=== PATIENT | female | born 1980 | race African-American/Black ===

== ENCOUNTER 2022-10-27 12:57 | Emergency (ER) | payer OTHER ==
[2022-10-27 13:08] VITALS: BMI 33.9
[2022-10-27] MEDS ORDERED: ACETAMINOPHEN 1000 MG/100 ML BAG IVPB ONE (14:29)
[2022-10-27] MEDS ORDERED: FAMOTIDINE 20 MG TABLET PO ONE (14:35)
[2022-10-27] MEDS ORDERED: MAG HYDROX/AL HYDROX/SIMETH -MYLANTA- ORAL SUSPENSION PO ONE (14:35)
[2022-10-27] MEDS ORDERED: SODIUM CHLORIDE 1,000 ML IV STA (14:36)
[2022-10-27] MEDS ORDERED: ONDANSETRON 4 MG/2 ML VIAL IVPUSH ONE (14:36)
[2022-10-27 15:10] LABS: BASO % 0.2 % (0-2.0); EOS % 0.1 % (0-4.5); HEMATOCRIT 39.4 % (32.4-45.2); HEMOGLOBIN 13.2 GM/dL (10.7-15.3); LYMPH % 14.2 % (8-40); MCH 27.3 pg (25.7-33.7); MCHC 33.4 g/dl (32.0-36.0); MEAN CELL VOLUME 81.6 fl (80-96); MEAN PLT VOLUME 9.8 fl (7.5-11.1); MONO % 3.2 % (3.8-10.2); NEUT % 82.3 % (42.8-82.8); PLATELET COUNT 235 10^3/uL (134-434); RBC 4.83 M/mm3 (3.60-5.2); RDW 14.3 % (11.6-15.6); WHITE BLOOD COUNT 7.1 K/mm3 (4.0-10.0)
[2022-10-27 15:29] LABS: CHLORIDE 103 mmol/L (98-107); POTASSIUM 3.8 mmol/L (3.5-5.1); SODIUM 137 mmol/L (136-145)
[2022-10-27 15:31] LABS: ALBUMIN 4.4 g/dl (3.4-5.0); ANION GAP 5 MMOL/L (8-16); CO2 29 mmol/L (21-32); GLUCOSE,RANDOM 99 mg/dL (74-106); LIPASE 135 U/L (73-393)
[2022-10-27 15:32] LABS: BLOOD UREA NITROGEN 5.6 mg/dL (7-18)
[2022-10-27 15:33] LABS: CREATININE 0.8 mg/dL (0.55-1.3); SGPT/ALT 24 U/L (13-61)
[2022-10-27 15:35] LABS: SGOT/AST 29 U/L (15-37)
[2022-10-27 15:36] LABS: BILIRUBIN,TOTAL 0.4 mg/dL (0.2-1); TOT PROT 8.7 g/dl (6.4-8.2)
[2022-10-27 15:37] LABS: ALK PHOS 70 U/L (45-117)
[2022-10-27] MEDS ORDERED: FAMOTIDINE 20 MG/50 ML IVPB 20 MG/50 ML MG IVPB ONE (16:06)
[2022-10-27] MEDS ORDERED: ONDANSETRON 4 MG/2 ML VIAL ONE (16:06)
[2022-10-27] MEDS ORDERED: MAG HYDROX/AL HYDROX/SIMETH 30 ML UNIT-DOSE CUP ONE (16:06)
[2022-10-27 16:48] LABS: PH,URINE 7.5 (5.0-8.0); URINE APPEARANCE CLEAR; URINE BILIRUBIN NEGATIVE (NEGATIVE); URINE COLOR YELLOW; URINE GLUCOSE (UA) NEGATIVE (NEGATIVE); URINE KETONE NEGATIVE (NEGATIVE); URINE LEUK ESTERASE NEGATIVE (NEGATIVE); URINE NITRITE NEGATIVE (NEGATIVE); URINE PROTEIN NEGATIVE (NEGATIVE); URINE UROBILINOGEN 0.2 mg/dL (0.2-1.0)
[2022-10-27 17:30] VITALS: BP 164/89; PULSE 97; RESP 16; TEMP 97.8
== END 2022-10-27 17:48 | disposition home or self-care (01) ==
LOC: JER 12:57
PROC: 3E033NZ Introduction of Analgesics, Hypnotics, Sedatives into Peripheral Vein, Percutaneous Approach (ICD-10-PCS; principal; 2022-10-27)
PROC: 3E0337Z Introduction of Electrolytic and Water Balance Substance into Peripheral Vein, Percutaneous Approach (ICD-10-PCS; 2022-10-27)
DX: R10.13 Epigastric pain (principal); R42 Dizziness and giddiness; R11.10 Vomiting, unspecified; R19.7 Diarrhea, unspecified; K52.9 Noninfective gastroenteritis and colitis, unspecified
CPT/HCPCS: 36415; 80053; 81003; 83690; 84702; 85025; 93005; 93010; 99284-25

== ENCOUNTER 2023-12-20 11:17 | Emergency (ER) | payer OTHER ==
[2023-12-20 11:24] VITALS: BP 155/92; PULSE 104; RESP 18; TEMP 99.4; BMI 34.9
[2023-12-20 12:32] LABS: EPI CELLS 6 /uL (0-25.1); HYALINE CASTS 0 /uL (0-3.1); PH,URINE >= 9.0 (5.0-8.0); URINE APPEARANCE CLEAR; URINE BACTERIA 210 /uL (0-1359); URINE BILIRUBIN NEGATIVE (NEGATIVE); URINE COLOR YELLOW; URINE GLUCOSE (UA) NEGATIVE (NEGATIVE); URINE KETONE NEGATIVE (NEGATIVE); URINE LEUK ESTERASE TRACE (NEGATIVE); URINE NITRITE NEGATIVE (NEGATIVE); URINE PROTEIN NEGATIVE (NEGATIVE); URINE RBC 8 /uL (0-23.9); URINE UROBILINOGEN 0.2 mg/dL (0.2-1.0); URINE WBC 9 /uL (0-25.8)
[2023-12-20] MEDS ORDERED: FAMOTIDINE 20 MG/50 ML IVPB 20 MG/50 ML MG IVPB ONE (12:35)
[2023-12-20] MEDS ORDERED: ONDANSETRON 4 MG/2 ML VIAL ONE (12:35)
[2023-12-20] MEDS: SODIUM CHLORIDE 0.9% 500 ML INFUS.BAG IV ONE (12:40)
[2023-12-20] MEDS: ONDANSETRON 4 MG/2 ML VIAL IVPUSH ONE (12:40)
[2023-12-20] MEDS: FAMOTIDINE 20 MG/50 ML IVPB 20 MG/50 ML MG IVPB ONE (12:40)
[2023-12-20 12:42] LABS: BASO % 0.3 % (0-2.0); EOS % 0.1 % (0-4.5); HEMOGLOBIN 12.1 GM/dL (10.7-15.3); LYMPH % 13.5 % (8-40); MCH 26.6 pg (25.7-33.7); MCHC 32.7 g/dl (32.0-36.0); MEAN CELL VOLUME 81.5 fl (80-96); MEAN PLT VOLUME 8.8 fl (7.5-11.1); MONO % 3.8 % (3.8-10.2); NEUT % 82.3 % (42.8-82.8); PLATELET COUNT 231 10^3/uL (134-434); RBC 4.54 M/mm3 (3.60-5.2); RDW 15.1 % (11.6-15.6); WHITE BLOOD COUNT 6.1 K/mm3 (4.0-10.0)
[2023-12-20 13:00] LABS: POTASSIUM 4.1 mmol/L (3.5-5.1)
[2023-12-20 13:03] LABS: ALBUMIN 4.1 g/dl (3.4-5.0); BLOOD UREA NITROGEN 9.4 mg/dL (7-18); MAGNESIUM 2.1 mg/dL (1.8-2.4)
[2023-12-20 13:06] LABS: CREATININE 0.9 mg/dL (0.55-1.3)
[2023-12-20 13:08] LABS: BILIRUBIN,TOTAL 0.4 mg/dL (0.2-1); TOT PROT 7.9 g/dl (6.4-8.2)
[2023-12-20 13:10] LABS: HCG,QUALITATIVE URINE Negative
[2023-12-20] MEDS ORDERED: ACETAMINOPHEN INJECTION 100 ML IVPB ONE (13:30)
[2023-12-20] MEDS ORDERED: MAG HYDROX/AL HYDROX/SIMETH 30 ML UNIT-DOSE CUP ONE (13:30)
[2023-12-20] MEDS ORDERED: LIDOCAINE VISCOUS 2% ORAL/TOP 15 ML UNIT-DOSE CUP ONE (13:30)
[2023-12-20] MEDS: ACETAMINOPHEN 1000 MG/100 ML BAG IVPB ONE (13:37)
[2023-12-20] MEDS: MAG HYDROX/AL HYDROX/SIMETH -MYLANTA- ORAL SUSPENSION PO ONE (13:37)
[2023-12-20] MEDS: LIDOCAINE VISCOUS 2% ORAL/TOP 15 ML UNIT-DOSE CUP MM ONE (14:27)
== END 2023-12-20 17:20 | disposition home or self-care (01) ==
LOC: JER 11:17
PROC: 3E033GC Introduction of Other Therapeutic Substance into Peripheral Vein, Percutaneous Approach (ICD-10-PCS; principal; 2023-12-20)
PROC: 3E033GC Introduction of Other Therapeutic Substance into Peripheral Vein, Percutaneous Approach (ICD-10-PCS; 2023-12-20)
PROC: 3E033NZ Introduction of Analgesics, Hypnotics, Sedatives into Peripheral Vein, Percutaneous Approach (ICD-10-PCS; 2023-12-20)
DX: K52.9 Noninfective gastroenteritis and colitis, unspecified (principal); R10.13 Epigastric pain; R11.10 Vomiting, unspecified; R42 Dizziness and giddiness
CPT/HCPCS: 36415; 71046-TC-FY; 74177-TC; 76705-TC; 76775-TC; 80053; 81003; 83690; 83735; 84484; 84703; 85025; 87086; 93005; 93010; 99285-25; J0131

== ENCOUNTER 2024-01-06 10:03 | Emergency (ER) | payer OTHER ==
[2024-01-06 10:47] VITALS: BMI 34.8
[2024-01-06] MEDS ORDERED: ACETAMINOPHEN INJECTION 100 ML IVPB ONE (11:28)
[2024-01-06] MEDS: ACETAMINOPHEN 1000 MG/100 ML BAG IVPB ONE (11:52)
[2024-01-06 11:55] LABS: BASO % 0.5 % (0-2.0); EOS % 0.3 % (0-4.5); HEMATOCRIT 38.3 % (32.4-45.2); HEMOGLOBIN 12.5 GM/dL (10.7-15.3); MCH 26.9 pg (25.7-33.7); MCHC 32.7 g/dl (32.0-36.0); MEAN CELL VOLUME 82.2 fl (80-96); MEAN PLT VOLUME 9.9 fl (7.5-11.1); MONO % 4.7 % (3.8-10.2); NEUT % 75.5 % (42.8-82.8); PLATELET COUNT 204 10^3/uL (134-434); RBC 4.66 M/mm3 (3.60-5.2); RDW 14.8 % (11.6-15.6); WHITE BLOOD COUNT 4.9 K/mm3 (4.0-10.0)
[2024-01-06 12:03] LABS: INR 1.16 (0.83-1.09)
[2024-01-06 12:05] LABS: ACTIVATED PTT 27.8 SECONDS (25.2-36.5)
[2024-01-06 12:31] LABS: CHLORIDE 105 mmol/L (98-107); SODIUM 135 mmol/L (136-145)
[2024-01-06 12:33] LABS: CALCIUM 9.4 mg/dL (8.5-10.1)
[2024-01-06 12:34] LABS: ALBUMIN 4.3 g/dl (3.4-5.0); MAGNESIUM 2.1 mg/dL (1.8-2.4)
[2024-01-06 12:35] LABS: ANION GAP 3 mmol/L (4-13); CO2 27 mmol/L (21-32); GLUCOSE,RANDOM 99 mg/dL (74-106); POTASSIUM 7.2 mmol/L (3.5-5.1)
[2024-01-06 12:37] LABS: SGOT/AST 74 U/L (15-37)
[2024-01-06 12:38] LABS: BILIRUBIN,TOTAL 0.5 mg/dL (0.2-1); TOT PROT 8.7 g/dl (6.4-8.2)
[2024-01-06 12:39] LABS: CREATININE 1.1 mg/dL (0.55-1.3); SGPT/ALT 23 U/L (13-61)
[2024-01-06 12:40] LABS: ALK PHOS 65 U/L (45-117)
[2024-01-06 12:49] LABS: EPI CELLS 10 /uL (0-25.1); HYALINE CASTS 1 /uL (0-3.1); PH,URINE 6.5 (5.0-8.0); URINE APPEARANCE CLEAR; URINE BACTERIA 11 /uL (0-1359); URINE BILIRUBIN NEGATIVE (NEGATIVE); URINE COLOR RED; URINE GLUCOSE (UA) NEGATIVE (NEGATIVE); URINE KETONE NEGATIVE (NEGATIVE); URINE LEUK ESTERASE 1+ (NEGATIVE); URINE NITRITE NEGATIVE (NEGATIVE); URINE PROTEIN TRACE (NEGATIVE); URINE RBC 13205 /uL (0-23.9); URINE UROBILINOGEN 0.2 mg/dL (0.2-1.0); URINE WBC 46 /uL (0-25.8)
[2024-01-06] MEDS ORDERED: MAG HYDROX/AL HYDROX/SIMETH 30 ML UNIT-DOSE CUP ONE (14:39)
[2024-01-06] MEDS ORDERED: FAMOTIDINE 20 MG/50 ML IVPB 20 MG/50 ML MG IVPB ONE (14:40)
[2024-01-06] MEDS: MAG HYDROX/AL HYDROX/SIMETH 30 ML UNIT-DOSE CUP PO ONE (14:50)
[2024-01-06] MEDS: FAMOTIDINE 20 MG/50 ML IVPB 20 MG/50 ML MG IVPB ONE (14:50)
[2024-01-06 16:16] LABS: POTASSIUM 3.7 mmol/L (3.5-5.1)
[2024-01-06 16:19] LABS: CALCIUM 9.6 mg/dL (8.5-10.1)
[2024-01-06 16:20] LABS: BLOOD UREA NITROGEN 4.1 mg/dL (7-18)
[2024-01-06 16:54] VITALS: BP 157/98; PULSE 108; RESP 18; TEMP 97.3
== END 2024-01-06 16:53 | disposition home or self-care (01) ==
LOC: JER 10:03
PROC: 3E033GC Introduction of Other Therapeutic Substance into Peripheral Vein, Percutaneous Approach (ICD-10-PCS; principal; 2024-01-06)
PROC: 3E033NZ Introduction of Analgesics, Hypnotics, Sedatives into Peripheral Vein, Percutaneous Approach (ICD-10-PCS; 2024-01-06)
DX: R10.13 Epigastric pain (principal); K59.00 Constipation, unspecified; R11.0 Nausea; Z20.822 Contact with and (suspected) exposure to COVID-19
CPT/HCPCS: 0241U-QW; 36415; 76700-TC; 80048; 80053; 81003; 83690; 83735; 85025; 85610; 85730; 87086; 93005; 93010; 99284-25; J0131

== ENCOUNTER 2024-01-06 21:23 | Observation (INO) | payer OTHER ==
[2024-01-06] MEDS ORDERED: ACETAMINOPHEN INJECTION 100 ML IVPB ONE (23:28)
[2024-01-06] MEDS ORDERED: FAMOTIDINE 20 MG/50 ML IVPB 20 MG/50 ML MG IVPB ONE (23:29)
[2024-01-06] MEDS ORDERED: MAG HYDROX/AL HYDROX/SIMETH 30 ML UNIT-DOSE CUP ONE (23:29)
[2024-01-06] MEDS: MAG HYDROX/AL HYDROX/SIMETH 30 ML UNIT-DOSE CUP PO ONE (23:41)
[2024-01-06] MEDS: SODIUM CHLORIDE 0.9% 500 ML INFUS.BAG IV ONE (23:41)
[2024-01-06] MEDS: ACETAMINOPHEN 1000 MG/100 ML BAG IVPB ONE (23:41)
[2024-01-06] MEDS: FAMOTIDINE 20 MG/50 ML IVPB 20 MG/50 ML MG IVPB ONE (23:53)
[2024-01-07] MEDS ORDERED: MAG HYDROX/AL HYDROX/SIMETH 30 ML UNIT-DOSE CUP PO PRN (02:12)
[2024-01-07] MEDS: DOCUSATE SODIUM 100 MG CAPSULE (FP) PO SCH (02:24)
[2024-01-07] MEDS: DEXTROSE 5%-0.45% SALINE 1,000 ML IV SCH (02:24)
[2024-01-07 04:06] VITALS: BMI 34.9
[2024-01-07] MEDS: SUCRALFATE 1 GM TABLET (FP) PO SCH (06:23)
[2024-01-07] MEDS: ACETAMINOPHEN 1000 MG/100 ML BAG IVPB PRN (07:00)
[2024-01-07] MEDS: PANTOPRAZOLE SOD 40 MG SUSPENSION PACKET PO SCH (09:54)
[2024-01-07] MEDS: POLYETHYLENE GLYCOL (HEALTHYLAX) 3350 17 GM PACKET PO SCH (09:54)
[2024-01-07] MEDS: FAMOTIDINE 20 MG/50 ML IVPB 20 MG/50 ML MG IVPB SCH (10:36)
[2024-01-07] MEDS: LORazepam 2 MG/ML SDV VIAL IVPUSH ONE (10:36)
[2024-01-07 11:21] LABS: BASO % 0.4 % (0-2.0); EOS % 0.8 % (0-4.5); HEMATOCRIT 38.3 % (32.4-45.2); HEMOGLOBIN 12.8 GM/dL (10.7-15.3); LYMPH % 24.1 % (8-40); MCH 27.1 pg (25.7-33.7); MCHC 33.5 g/dl (32.0-36.0); MEAN PLT VOLUME 9.9 fl (7.5-11.1); MONO % 6.7 % (3.8-10.2); PLATELET COUNT 217 10^3/uL (134-434); RBC 4.73 M/mm3 (3.60-5.2); RDW 14.9 % (11.6-15.6); WHITE BLOOD COUNT 4.8 K/mm3 (4.0-10.0)
[2024-01-07 11:28] LABS: INR 1.14 (0.83-1.09); PROTHROMBIN TIME (PATIENT) 12.8 SEC (9.7-13.0)
[2024-01-07 11:42] LABS: CHLORIDE 107 mmol/L (98-107); POTASSIUM 3.5 mmol/L (3.5-5.1); SODIUM 140 mmol/L (136-145)
[2024-01-07 11:46] LABS: ALBUMIN 4.1 g/dl (3.4-5.0); ANION GAP 6 mmol/L (4-13); CALCIUM 8.7 mg/dL (8.5-10.1); CO2 27 mmol/L (21-32)
[2024-01-07 11:49] LABS: CREATININE 0.9 mg/dL (0.55-1.3); SGOT/AST 21 U/L (15-37)
[2024-01-07 11:50] LABS: SGPT/ALT 19 U/L (13-61)
[2024-01-07 11:51] LABS: BILIRUBIN,TOTAL 0.5 mg/dL (0.2-1)
[2024-01-07 11:52] LABS: ALK PHOS 63 U/L (45-117)
[2024-01-07 11:59] LABS: BLOOD UREA NITROGEN 2.4 mg/dL (7-18)
[2024-01-07 12:22] LABS: GLUCOSE,RANDOM 108 mg/dL (74-106)
[2024-01-08] MEDS ORDERED: ACETAMINOPHEN 325 MG TABLET (FP) PO PRN (06:00)
[2024-01-08 07:52] LABS: HEMATOCRIT 37.1 % (32.4-45.2); HEMOGLOBIN 12.3 GM/dL (10.7-15.3); MCHC 33.2 g/dl (32.0-36.0); MEAN CELL VOLUME 81.1 fl (80-96); MEAN PLT VOLUME 9.9 fl (7.5-11.1); PLATELET COUNT 196 10^3/uL (134-434); RBC 4.57 M/mm3 (3.60-5.2); RDW 14.6 % (11.6-15.6); WHITE BLOOD COUNT 4.9 K/mm3 (4.0-10.0)
[2024-01-08 07:57] LABS: INR 1.18 (0.83-1.09); PROTHROMBIN TIME (PATIENT) 13.3 SEC (9.7-13.0)
[2024-01-08 07:59] LABS: ACTIVATED PTT 29.7 SECONDS (25.2-36.5)
[2024-01-08 08:02] LABS: CHLORIDE 105 mmol/L (98-107); POTASSIUM 3.5 mmol/L (3.5-5.1); SODIUM 139 mmol/L (136-145)
[2024-01-08 08:06] LABS: ANION GAP 8 mmol/L (4-13); CALCIUM 9.3 mg/dL (8.5-10.1); CO2 27 mmol/L (21-32); GLUCOSE,RANDOM 95 mg/dL (74-106)
[2024-01-08 08:08] LABS: BLOOD UREA NITROGEN 2.3 mg/dL (7-18)
[2024-01-08] MEDS: PANTOPRAZOLE SODIUM 40 MG VIAL IVPUSH SCH (09:25)
[2024-01-08 14:20] VITALS: BP 128/81; PULSE 93; RESP 18; TEMP 98.6
[2024-01-08] MEDS ORDERED: PANTOPRAZOLE 40 MG TABLET PO SCH (22:00)
== END 2024-01-08 19:38 | disposition home or self-care (01) ==
LOC: JER 21:23 → JERBED 01-07 02:05 → J8W 01-07 03:22
PROVIDERS: ADMIT Internal Medicine; ATTEND Family Medicine
PROC: 0DB98ZX Excision of Duodenum, Via Natural or Artificial Opening Endoscopic, Diagnostic (ICD-10-PCS; principal; 2024-01-07)
PROC: 0DB78ZX Excision of Stomach, Pylorus, Via Natural or Artificial Opening Endoscopic, Diagnostic (ICD-10-PCS; 2024-01-07)
PROC: 0DB28ZX Excision of Middle Esophagus, Via Natural or Artificial Opening Endoscopic, Diagnostic (ICD-10-PCS; 2024-01-07)
PROC: 0DB38ZX Excision of Lower Esophagus, Via Natural or Artificial Opening Endoscopic, Diagnostic (ICD-10-PCS; 2024-01-07)
PROC: 3E033NZ Introduction of Analgesics, Hypnotics, Sedatives into Peripheral Vein, Percutaneous Approach (ICD-10-PCS; 2024-01-07)
PROC: 3E033GC Introduction of Other Therapeutic Substance into Peripheral Vein, Percutaneous Approach (ICD-10-PCS; 2024-01-07)
PROC: 3E033GC Introduction of Other Therapeutic Substance into Peripheral Vein, Percutaneous Approach (ICD-10-PCS; 2024-01-07)
PROC: 3E033NZ Introduction of Analgesics, Hypnotics, Sedatives into Peripheral Vein, Percutaneous Approach (ICD-10-PCS; 2024-01-07)
PROC: 3E0337Z Introduction of Electrolytic and Water Balance Substance into Peripheral Vein, Percutaneous Approach (ICD-10-PCS; 2024-01-07)
DX: K29.70 Gastritis, unspecified, without bleeding (principal); K44.9 Diaphragmatic hernia without obstruction or gangrene; R63.0 Anorexia; K42.9 Umbilical hernia without obstruction or gangrene; R07.9 Chest pain, unspecified; Z88.8 Allergy status to other drugs, medicaments and biological substances
CPT/HCPCS: 36415; 74177-TC; 80048; 80053; 81025; 82550; 82553; 84484; 85025; 85027; 85610; 85730; 86850; 86900; 86901; 88305-TC; 88342-TC; 93005; 93010; 96365; 96366; 96367; 96375; 99285-25; G0378; J0131; Q9967

== ENCOUNTER 2024-01-17 13:56 | Emergency (ER) | payer OTHER ==
[2024-01-17 14:03] VITALS: BP 129/91; PULSE 105; RESP 18; TEMP 98.7; BMI 33.6
[2024-01-17 15:47] LABS: BASO % 0.5 % (0-2.0); EOS % 0.9 % (0-4.5); HEMATOCRIT 37.5 % (32.4-45.2); HEMOGLOBIN 12.5 GM/dL (10.7-15.3); LYMPH % 23.2 % (8-40); MCH 26.8 pg (25.7-33.7); MCHC 33.4 g/dl (32.0-36.0); MEAN CELL VOLUME 80.3 fl (80-96); MEAN PLT VOLUME 8.7 fl (7.5-11.1); MONO % 6.4 % (3.8-10.2); PLATELET COUNT 257 10^3/uL (134-434); RBC 4.67 M/mm3 (3.60-5.2); RDW 14.6 % (11.6-15.6); WHITE BLOOD COUNT 5.2 K/mm3 (4.0-10.0)
[2024-01-17] MEDS: SODIUM CHLORIDE 0.9% 500 ML INFUS.BAG IV ONE (15:52)
[2024-01-17 16:09] LABS: POTASSIUM 3.5 mmol/L (3.5-5.1)
[2024-01-17 16:11] LABS: CALCIUM 9.3 mg/dL (8.5-10.1)
[2024-01-17 16:12] LABS: ALBUMIN 4.4 g/dl (3.4-5.0); BLOOD UREA NITROGEN 4.4 mg/dL (7-18); MAGNESIUM 2.2 mg/dL (1.8-2.4)
[2024-01-17 16:17] LABS: BILIRUBIN,TOTAL 0.6 mg/dL (0.2-1)
== END 2024-01-17 17:18 | disposition home or self-care (01) ==
LOC: JER 13:56
DX: R00.2 Palpitations (principal); R07.9 Chest pain, unspecified; R11.0 Nausea; Z20.822 Contact with and (suspected) exposure to COVID-19
CPT/HCPCS: 0241U-QW; 36415; 71046-TC-FY; 80053; 83735; 84439; 84443; 84484; 85025; 85379; 93005; 93010; 93971-TC; 99285-25

== ENCOUNTER 2024-01-26 16:29 | Observation (INO) | payer OTHER ==
[2024-01-26] MEDS ORDERED: ACETAMINOPHEN INJECTION 100 ML IVPB ONE (17:34)
[2024-01-26] MEDS: ACETAMINOPHEN 1000 MG/100 ML BAG IVPB ONE (17:50)
[2024-01-26 18:08] LABS: BASO % 0.4 % (0-2.0); EOS % 0.2 % (0-4.5); HEMATOCRIT 37.1 % (32.4-45.2); HEMOGLOBIN 12.3 GM/dL (10.7-15.3); LYMPH % 25.6 % (8-40); MCH 26.5 pg (25.7-33.7); MCHC 33.2 g/dl (32.0-36.0); MEAN CELL VOLUME 79.9 fl (80-96); MEAN PLT VOLUME 8.6 fl (7.5-11.1); NEUT % 67.8 % (42.8-82.8); PLATELET COUNT 251 10^3/uL (134-434); RBC 4.64 M/mm3 (3.60-5.2); RDW 14.5 % (11.6-15.6); WHITE BLOOD COUNT 4.9 K/mm3 (4.0-10.0)
[2024-01-26 18:08] LABS: EPI CELLS 12 /uL (0-25.1); HYALINE CASTS 0 /uL (0-3.1); PH,URINE 7.5 (5.0-8.0); URINE APPEARANCE CLEAR; URINE BACTERIA 149 /uL (0-1359); URINE BILIRUBIN NEGATIVE (NEGATIVE); URINE COLOR YELLOW; URINE GLUCOSE (UA) NEGATIVE (NEGATIVE); URINE KETONE 2+ (NEGATIVE); URINE LEUK ESTERASE 2+ (NEGATIVE); URINE NITRITE NEGATIVE (NEGATIVE); URINE PROTEIN NEGATIVE (NEGATIVE); URINE RBC 7 /uL (0-23.9); URINE UROBILINOGEN 0.2 mg/dL (0.2-1.0); URINE WBC 18 /uL (0-25.8)
[2024-01-26 18:22] LABS: INR 1.14 (0.83-1.09); PROTHROMBIN TIME (PATIENT) 13.1 SEC (9.7-13.0)
[2024-01-26 18:24] LABS: ACTIVATED PTT 29.2 SECONDS (25.2-36.5)
[2024-01-26 19:12] LABS: POTASSIUM 3.7 mmol/L (3.5-5.1)
[2024-01-26] MEDS ORDERED: CEFTRIAXONE 1 GM/50 ML BAG ONE (19:39)
[2024-01-26 19:42] LABS: ALBUMIN 4.3 g/dl (3.4-5.0); BLOOD UREA NITROGEN 4.5 mg/dL (7-18); CALCIUM 9.6 mg/dL (8.5-10.1)
[2024-01-26 19:47] LABS: BILIRUBIN,TOTAL 0.6 mg/dL (0.2-1); TOT PROT 8.1 g/dl (6.4-8.2)
[2024-01-26] MEDS: CEFTRIAXONE 1 GM in DEXTROSE 5%-WATER - 100 ML IVPB ONE (19:47)
[2024-01-26 19:50] LABS: N-TERMINAL BNP 10.9 pg/ml (5-125)
[2024-01-26] MEDS ORDERED: LIDOCAINE 5% TOPICAL PATCH ONE (20:40)
[2024-01-26] MEDS ORDERED: FAMOTIDINE 20 MG/50 ML IVPB 20 MG/50 ML MG IVPB ONE (20:40)
[2024-01-26] MEDS ORDERED: MAG HYDROX/AL HYDROX/SIMETH 30 ML UNIT-DOSE CUP ONE (20:40)
[2024-01-26] MEDS: MAG HYDROX/AL HYDROX/SIMETH -MYLANTA- ORAL SUSPENSION PO ONE (20:56)
[2024-01-26] MEDS: LIDOCAINE 5% TOPICAL PATCH TP ONE (20:56)
[2024-01-26] MEDS: FAMOTIDINE 20 MG TABLET PO ONE (20:57)
[2024-01-26] MEDS: LIDOCAINE PATCH REMOVAL MC SCH (22:00)
[2024-01-27 01:18] VITALS: BMI 32.3
[2024-01-27 07:50] LABS: BASO % 0.5 % (0-2.0); EOS % 0.9 % (0-4.5); HEMATOCRIT 36.7 % (32.4-45.2); HEMOGLOBIN 12.6 GM/dL (10.7-15.3); LYMPH % 38.5 % (8-40); MCH 27.2 pg (25.7-33.7); MCHC 34.3 g/dl (32.0-36.0); MEAN CELL VOLUME 79.5 fl (80-96); MEAN PLT VOLUME 9.4 fl (7.5-11.1); NEUT % 51.1 % (42.8-82.8); PLATELET COUNT 225 10^3/uL (134-434); RBC 4.62 M/mm3 (3.60-5.2); RDW 14.3 % (11.6-15.6)
[2024-01-27 08:25] LABS: BLOOD UREA NITROGEN 4.4 mg/dL (7-18); CALCIUM 9.6 mg/dL (8.5-10.1); POTASSIUM 3.9 mmol/L (3.5-5.1)
[2024-01-27] MEDS: CEFTRIAXONE 1 GM in DEXTROSE 5%-WATER - 50 ML IVPB SCH (10:18)
[2024-01-27] MEDS: PANTOPRAZOLE SODIUM 40 MG VIAL IVPUSH SCH (10:19)
[2024-01-27] MEDS ORDERED: metoPROLOL SUCCINATE 25 MG TAB.SR.24H (FP) PO SCH (12:15)
[2024-01-27] MEDS: ESCITALOPRAM OXALATE 10 MG TABLET PO SCH (14:03)
[2024-01-28] MEDS: metoPROLOL SUCCINATE 25 MG TAB.SR.24H (FP) PO SCH (13:47)
[2024-01-29] MEDS: ACETAMINOPHEN 325 MG TABLET (FP) PO PRN (01:30)
[2024-01-29 09:54] VITALS: BP 143/97; PULSE 95; RESP 20; TEMP 100.2
[2024-01-29] MEDS: PANTOPRAZOLE 40 MG TABLET PO SCH (09:59)
== END 2024-01-29 13:24 | disposition home or self-care (01) ==
LOC: JER 16:29 → JERBED 19:25 → J4S 23:26
PROVIDERS: ADMIT Internal Medicine; ATTEND Family Medicine
PROC: 3E033NZ Introduction of Analgesics, Hypnotics, Sedatives into Peripheral Vein, Percutaneous Approach (ICD-10-PCS; principal; 2024-01-26)
PROC: 3E03329 Introduction of Other Anti-infective into Peripheral Vein, Percutaneous Approach (ICD-10-PCS; 2024-01-26)
PROC: 3E033NZ Introduction of Analgesics, Hypnotics, Sedatives into Peripheral Vein, Percutaneous Approach (ICD-10-PCS; 2024-01-26)
PROC: 3E033GC Introduction of Other Therapeutic Substance into Peripheral Vein, Percutaneous Approach (ICD-10-PCS; 2024-01-26)
DX: R00.2 Palpitations (principal); R06.02 Shortness of breath; R07.89 Other chest pain; N39.0 Urinary tract infection, site not specified; K29.70 Gastritis, unspecified, without bleeding; K44.9 Diaphragmatic hernia without obstruction or gangrene; R07.1 Chest pain on breathing; K76.89 Other specified diseases of liver; K21.9 Gastro-esophageal reflux disease without esophagitis; Z88.8 Allergy status to other drugs, medicaments and biological substances
CPT/HCPCS: 36415; 71045-TC-FY; 78452-TC; 80048; 80053; 80061; 81003; 83690; 83880; 84443; 84484; 84703; 85025; 85379; 85610; 85730; 87077; 87086; 93005; 93010; 93017; 93306-TC; 96361; 96374; 99285-25; A9502; G0378; J0131; J2785

== ENCOUNTER 2024-02-02 15:53 | Emergency (ER) | payer OTHER ==
[2024-02-02 16:30] VITALS: BMI 30.9
[2024-02-02] MEDS: MAG HYDROX/AL HYDROX/SIMETH 30 ML UNIT-DOSE CUP PO ONE (17:00)
[2024-02-02] MEDS: FAMOTIDINE 20 MG/50 ML IVPB 20 MG/50 ML MG IVPB ONE (17:00)
[2024-02-02] MEDS ORDERED: ACETAMINOPHEN INJECTION 100 ML IVPB ONE (17:26)
[2024-02-02] MEDS ORDERED: MAG HYDROX/AL HYDROX/SIMETH 30 ML UNIT-DOSE CUP ONE (17:26)
[2024-02-02] MEDS ORDERED: FAMOTIDINE 20 MG/50 ML IVPB 20 MG/50 ML MG IVPB ONE (17:26)
[2024-02-02 17:28] LABS: BASO % 0.4 % (0-2.0); EOS % 0.1 % (0-4.5); HEMATOCRIT 36.4 % (32.4-45.2); HEMOGLOBIN 12.5 GM/dL (10.7-15.3); LYMPH % 20.6 % (8-40); MCHC 34.4 g/dl (32.0-36.0); MEAN CELL VOLUME 78.5 fl (80-96); MEAN PLT VOLUME 8.6 fl (7.5-11.1); MONO % 5.7 % (3.8-10.2); NEUT % 73.2 % (42.8-82.8); PLATELET COUNT 234 10^3/uL (134-434); RBC 4.64 M/mm3 (3.60-5.2); RDW 14.8 % (11.6-15.6); WHITE BLOOD COUNT 5.1 K/mm3 (4.0-10.0)
[2024-02-02 17:42] LABS: POTASSIUM 3.7 mmol/L (3.5-5.1)
[2024-02-02] MEDS: SODIUM CHLORIDE 0.9% 500 ML INFUS.BAG IV ONE (17:45)
[2024-02-02 17:46] LABS: ALBUMIN 4.1 g/dl (3.4-5.0); CALCIUM 9.4 mg/dL (8.5-10.1)
[2024-02-02 17:47] LABS: BLOOD UREA NITROGEN 4.6 mg/dL (7-18)
[2024-02-02 17:51] LABS: BILIRUBIN,TOTAL 0.6 mg/dL (0.2-1); TOT PROT 7.9 g/dl (6.4-8.2)
[2024-02-02] MEDS: ACETAMINOPHEN 1000 MG/100 ML BAG IVPB ONE (17:56)
[2024-02-02 19:20] VITALS: BP 147/97; PULSE 89; RESP 17; TEMP 98.6
== END 2024-02-02 21:09 | disposition home or self-care (01) ==
LOC: JER 15:53
PROC: 3E033GC Introduction of Other Therapeutic Substance into Peripheral Vein, Percutaneous Approach (ICD-10-PCS; principal; 2024-02-02)
PROC: 3E033NZ Introduction of Analgesics, Hypnotics, Sedatives into Peripheral Vein, Percutaneous Approach (ICD-10-PCS; 2024-02-02)
DX: R07.89 Other chest pain (principal); R06.02 Shortness of breath; R61 Generalized hyperhidrosis; R00.0 Tachycardia, unspecified
CPT/HCPCS: 36415; 71045-TC-FY; 71275-TC; 80053; 84484; 84703; 85025; 85379; 93005; 93010; 99285-25; J0131; Q9967

== ENCOUNTER 2024-02-08 23:19 | Emergency (ER) | payer OTHER ==
[2024-02-08 23:35] VITALS: BP 145/89; PULSE 89; RESP 17; TEMP 98.6; BMI 29.9
[2024-02-09] MEDS ORDERED: MAG HYDROX/AL HYDROX/SIMETH 30 ML UNIT-DOSE CUP ONE (00:22)
[2024-02-09] MEDS ORDERED: METHOCARBAMOL 500 MG TABLET ONE (00:22)
[2024-02-09] MEDS ORDERED: LIDOCAINE 4% PATCH TP ONE (00:22)
[2024-02-09] MEDS: MAG HYDROX/AL HYDROX/SIMETH 30 ML UNIT-DOSE CUP PO ONE (00:43)
[2024-02-09] MEDS: METHOCARBAMOL 500 MG TABLET PO ONE (00:43)
[2024-02-09] MEDS: DICYCLOMINE HCL 20 MG/2 ML AMPUL IM ONE (00:43)
[2024-02-09] MEDS: LIDOCAINE 4% PATCH TP ONE (00:43)
[2024-02-09 01:19] LABS: BASO % 0.5 % (0-2.0); EOS % 1.1 % (0-4.5); HEMATOCRIT 36.3 % (32.4-45.2); HEMOGLOBIN 12.1 GM/dL (10.7-15.3); LYMPH % 32.9 % (8-40); MCH 26.8 pg (25.7-33.7); MCHC 33.4 g/dl (32.0-36.0); MEAN CELL VOLUME 80.3 fl (80-96); MEAN PLT VOLUME 9.1 fl (7.5-11.1); MONO % 6.5 % (3.8-10.2); PLATELET COUNT 230 10^3/uL (134-434); RBC 4.52 M/mm3 (3.60-5.2); WHITE BLOOD COUNT 5.2 K/mm3 (4.0-10.0)
[2024-02-09 02:01] LABS: POTASSIUM 3.5 mmol/L (3.5-5.1)
[2024-02-09 02:03] LABS: CALCIUM 9.3 mg/dL (8.5-10.1)
[2024-02-09 02:04] LABS: BLOOD UREA NITROGEN 5.7 mg/dL (7-18)
[2024-02-09 02:09] LABS: BILIRUBIN,TOTAL 0.6 mg/dL (0.2-1); TOT PROT 7.6 g/dl (6.4-8.2)
== END 2024-02-09 02:48 | disposition home or self-care (01) ==
LOC: JER 23:19
PROC: 3E023GC Introduction of Other Therapeutic Substance into Muscle, Percutaneous Approach (ICD-10-PCS; principal; 2024-02-09)
DX: R00.2 Palpitations (principal); M54.2 Cervicalgia; R07.9 Chest pain, unspecified; R68.84 Jaw pain
CPT/HCPCS: 36415; 80053; 82670; 83001; 83002; 84484; 85025; 93005; 93010; 99284-25

== ENCOUNTER 2024-03-04 19:45 | Emergency (ER) | payer OTHER ==
[2024-03-04 19:56] VITALS: BMI 29.1
[2024-03-04] MEDS ORDERED: ACETAMINOPHEN INJECTION 100 ML ONE (21:30)
[2024-03-04] MEDS: ACETAMINOPHEN 1000 MG/100 ML BAG IVPB ONE (21:47)
[2024-03-04] MEDS: SODIUM CHLORIDE 0.9% 500 ML INFUS.BAG IV ONE (21:48)
[2024-03-04 21:53] LABS: BASO % 0.5 % (0-2.0); EOS % 0.7 % (0-4.5); HEMOGLOBIN 12.2 GM/dL (10.7-15.3); LYMPH % 33.7 % (8-40); MCH 26.1 pg (25.7-33.7); MCHC 32.9 g/dl (32.0-36.0); MEAN CELL VOLUME 79.4 fl (80-96); MEAN PLT VOLUME 8.4 fl (7.5-11.1); MONO % 5.3 % (3.8-10.2); NEUT % 59.8 % (42.8-82.8); PLATELET COUNT 252 10^3/uL (134-434); RBC 4.66 M/mm3 (3.60-5.2); RDW 14.6 % (11.6-15.6); WHITE BLOOD COUNT 5.1 K/mm3 (4.0-10.0)
[2024-03-04] MEDS ORDERED: LIDOCAINE PATCH REMOVAL MC SCH (22:00)
[2024-03-04 22:25] LABS: POTASSIUM 3.8 mmol/L (3.5-5.1)
[2024-03-04 22:27] LABS: CALCIUM 9.4 mg/dL (8.5-10.1)
[2024-03-04 22:28] LABS: ALBUMIN 3.8 g/dl (3.4-5.0); BLOOD UREA NITROGEN 5.3 mg/dL (7-18); MAGNESIUM 2.2 mg/dL (1.8-2.4)
[2024-03-04 22:31] LABS: CREATININE 0.9 mg/dL (0.55-1.3)
[2024-03-04 22:32] LABS: BILIRUBIN,TOTAL 0.6 mg/dL (0.2-1); TOT PROT 7.7 g/dl (6.4-8.2)
[2024-03-04] MEDS ORDERED: MECLIZINE HCL 25 MG TABLET (FP) ONE (22:49)
[2024-03-04] MEDS ORDERED: LIDOCAINE 4% PATCH TP ONE (22:49)
[2024-03-04] MEDS: MECLIZINE HCL 25 MG TABLET (FP) PO ONE (22:50)
[2024-03-04] MEDS: LIDOCAINE 4% PATCH TP ONE (22:50)
[2024-03-05 00:19] VITALS: BP 151/71; PULSE 68; RESP 15; TEMP 97.4
== END 2024-03-05 00:21 | disposition home or self-care (01) ==
LOC: JER 19:45
PROC: 3E033NZ Introduction of Analgesics, Hypnotics, Sedatives into Peripheral Vein, Percutaneous Approach (ICD-10-PCS; principal; 2024-03-04)
DX: R07.9 Chest pain, unspecified (principal); Z20.822 Contact with and (suspected) exposure to COVID-19
CPT/HCPCS: 0241U-QW; 36415; 71046-TC-FY; 80053; 83735; 84484; 85025; 93005; 93010; 99285-25; J0131

== ENCOUNTER 2024-03-12 00:13 | Observation (INO) | payer OTHER ==
[2024-03-12] MEDS ORDERED: ACETAMINOPHEN INJECTION 100 ML ONE (01:43)
[2024-03-12] MEDS ORDERED: METHOCARBAMOL 500 MG TABLET ONE (01:43)
[2024-03-12 01:49] LABS: BASO % 0.3 % (0-2.0); EOS % 0.2 % (0-4.5); HEMATOCRIT 36.6 % (32.4-45.2); HEMOGLOBIN 12.1 GM/dL (10.7-15.3); LYMPH % 31.4 % (8-40); MCH 26.2 pg (25.7-33.7); MEAN CELL VOLUME 79.2 fl (80-96); MEAN PLT VOLUME 8.8 fl (7.5-11.1); MONO % 5.8 % (3.8-10.2); NEUT % 62.3 % (42.8-82.8); PLATELET COUNT 251 10^3/uL (134-434); RBC 4.61 M/mm3 (3.60-5.2); RDW 15.1 % (11.6-15.6); WHITE BLOOD COUNT 6.1 K/mm3 (4.0-10.0)
[2024-03-12] MEDS: ACETAMINOPHEN 1000 MG/100 ML BAG IVPB ONE (01:52)
[2024-03-12] MEDS: METHOCARBAMOL 500 MG TABLET PO ONE (01:53)
[2024-03-12 02:07] LABS: POTASSIUM 3.5 mmol/L (3.5-5.1)
[2024-03-12 02:09] LABS: CALCIUM 9.8 mg/dL (8.5-10.1)
[2024-03-12 02:10] LABS: BLOOD UREA NITROGEN 8.2 mg/dL (7-18); MAGNESIUM 2.1 mg/dL (1.8-2.4)
[2024-03-12 02:13] LABS: CREATININE 0.9 mg/dL (0.55-1.3)
[2024-03-12 02:15] LABS: BILIRUBIN,TOTAL 0.5 mg/dL (0.2-1); TOT PROT 7.4 g/dl (6.4-8.2)
[2024-03-12] MEDS ORDERED: DOCUSATE SODIUM 100 MG CAPSULE (FP) PO PRN (03:56)
[2024-03-12 05:15] VITALS: BMI 28.3
[2024-03-12] MEDS ORDERED: PRAMIPEXOLE DIHYDROCHLORIDE 0.125 MG TABLET PO PRN (07:35)
[2024-03-12] MEDS ORDERED: MECLIZINE HCL 12.5 MG TABLET PO PRN (07:35)
[2024-03-12] MEDS ORDERED: POLYETHYLENE GLYCOL (HEALTHYLAX) 3350 17 GM PACKET PO PRN (07:53)
[2024-03-12] MEDS ORDERED: ACETAMINOPHEN 1000 MG/100 ML BAG IVPB PRN (08:00)
[2024-03-12] MEDS ORDERED: METHOCARBAMOL 500 MG TABLET PO PRN (08:23)
[2024-03-12] MEDS: FAMOTIDINE 20 MG TABLET PO SCH (09:33)
[2024-03-12] MEDS: NEBIVOLOL 2.5 MG TABLET (FP) PO SCH (09:34)
[2024-03-12 09:37] VITALS: RESP 18; TEMP 98.4
[2024-03-12] MEDS ORDERED: SERTRALINE HCL 50 MG TABLET (FP) PO SCH ×2 (10:00→22:00)
[2024-03-12 17:06] VITALS: BP 130/77; PULSE 80
[2024-03-13] MEDS ORDERED: ACETAMINOPHEN 325 MG TABLET (FP) PO PRN (09:00)
== END 2024-03-12 18:52 | disposition home or self-care (01) ==
LOC: JER 00:13 → JERBED 02:20 → J4W 04:50
PROVIDERS: ADMIT Internal Medicine; ATTEND Family Medicine
PROC: 3E033NZ Introduction of Analgesics, Hypnotics, Sedatives into Peripheral Vein, Percutaneous Approach (ICD-10-PCS; principal; 2024-03-12)
DX: H81.10 Benign paroxysmal vertigo, unspecified ear (principal); M54.2 Cervicalgia; G43.909 Migraine, unspecified, not intractable, without status migrainosus; K44.9 Diaphragmatic hernia without obstruction or gangrene; K29.70 Gastritis, unspecified, without bleeding; Z78.0 Asymptomatic menopausal state; D25.9 Leiomyoma of uterus, unspecified; Z88.8 Allergy status to other drugs, medicaments and biological substances
CPT/HCPCS: 36415; 70450-TC; 70496-TC; 70498-TC; 71045-TC-FY; 80053; 82962; 83735; 84484; 84703; 85025; 93005; 93010; 96374; 99285-25; G0378; J0131

== ENCOUNTER 2024-06-23 12:18 | Emergency (ER) | payer OTHER ==
[2024-06-23 13:46] VITALS: BP 150/102; TEMP 99; BMI 26.6
[2024-06-23] MEDS ORDERED: ACETAMINOPHEN INJECTION 100 ML ONE (15:06)
[2024-06-23 15:12] LABS: BASO % 0.6 % (0-2.0); EOS % 1.7 % (0-4.5); HEMATOCRIT 41.9 % (32.4-45.2); HEMOGLOBIN 13.6 GM/dL (10.7-15.3); LYMPH % 35.1 % (8-40); MCH 27.3 pg (25.7-33.7); MCHC 32.6 g/dl (32.0-36.0); MEAN CELL VOLUME 83.9 fl (80-96); MEAN PLT VOLUME 9.4 fl (7.5-11.1); MONO % 9.9 % (3.8-10.2); NEUT % 52.7 % (42.8-82.8); PLATELET COUNT 195 10^3/uL (134-434); RBC 4.99 M/mm3 (3.60-5.2); RDW 16.4 % (11.6-15.6); WHITE BLOOD COUNT 3.5 K/mm3 (4.0-10.0)
[2024-06-23] MEDS: ACETAMINOPHEN 1000 MG/100 ML BAG IVPB ONE (15:13)
[2024-06-23 15:20] LABS: URINE APPEARANCE CLEAR; URINE BILIRUBIN NEGATIVE (NEGATIVE); URINE COLOR YELLOW; URINE GLUCOSE (UA) NEGATIVE (NEGATIVE); URINE KETONE NEGATIVE (NEGATIVE); URINE LEUK ESTERASE NEGATIVE (NEGATIVE); URINE NITRITE NEGATIVE (NEGATIVE); URINE PROTEIN NEGATIVE (NEGATIVE); URINE UROBILINOGEN 0.2 mg/dL (0.2-1.0)
[2024-06-23 15:30] LABS: CALCIUM 9.6 mg/dL (8.5-10.1)
[2024-06-23 15:31] LABS: ALBUMIN 4.2 g/dl (3.4-5.0); BLOOD UREA NITROGEN 7.2 mg/dL (7-18)
[2024-06-23 15:34] LABS: CREATININE 1.1 mg/dL (0.55-1.3)
[2024-06-23 15:36] LABS: BILIRUBIN,TOTAL 0.5 mg/dL (0.2-1); TOT PROT 8.3 g/dl (6.4-8.2)
[2024-06-23 15:45] LABS: EPI CELLS 0.6 /uL (0-25.1); HYALINE CASTS 0 /uL (0-3.1); URINE BACTERIA 0 /uL (0-1359); URINE RBC 16.1 /uL (0-23.9); URINE WBC 2.8 /uL (0-25.8)
[2024-06-23 16:18] VITALS: PULSE 78; RESP 18
[2024-06-23 16:24] LABS: HIV INTERPRETATION NEGATIVE (NEGATIVE)
== END 2024-06-23 18:59 | disposition home or self-care (01) ==
LOC: JER 12:18
PROC: 3E033NZ Introduction of Analgesics, Hypnotics, Sedatives into Peripheral Vein, Percutaneous Approach (ICD-10-PCS; principal; 2024-06-23)
DX: R05.9 Cough, unspecified (principal); R50.9 Fever, unspecified; R07.9 Chest pain, unspecified; B97.4 Respiratory syncytial virus as the cause of diseases classified elsewhere; Z20.822 Contact with and (suspected) exposure to COVID-19
CPT/HCPCS: 0241U-QW; 36415; 71046-TC-FY; 80053; 81003; 84484; 84703; 85025; 86803; 87086; 87389; 93005; 93010; 99285-25; J0131

== ENCOUNTER 2024-08-15 14:07 | Emergency (ER) | payer OTHER ==
[2024-08-15 14:22] VITALS: BMI 26.1
[2024-08-15] MEDS ORDERED: ACETAMINOPHEN 500 MG TABLET (FP) ONE (16:57)
[2024-08-15] MEDS: ACETAMINOPHEN 1000 MG/100 ML BAG IVPB ONE (17:00)
[2024-08-15] MEDS: ACETAMINOPHEN 500 MG TABLET (FP) PO ONE (17:00)
[2024-08-15 17:20] LABS: CALCIUM 9.3 mg/dL (8.5-10.1)
[2024-08-15 17:21] LABS: ALBUMIN 4.1 g/dl (3.4-5.0); BLOOD UREA NITROGEN 8.4 mg/dL (7-18); INR 1.15 (0.83-1.09); MAGNESIUM 2.1 mg/dL (1.8-2.4); PROTHROMBIN TIME (PATIENT) 12.6 SEC (9.7-13.0)
[2024-08-15 17:23] LABS: ACTIVATED PTT 28.5 SECONDS (25.2-36.5)
[2024-08-15 17:24] LABS: CREATININE 0.9 mg/dL (0.55-1.3)
[2024-08-15 17:26] LABS: BILIRUBIN,TOTAL 0.6 mg/dL (0.2-1)
[2024-08-15] MEDS ORDERED: CycloBENZAprine HCL 5 MG TABLET ONE (18:16)
[2024-08-15] MEDS: CycloBENZAprine HCL 10 MG TABLET (FP) PO ONE (18:18)
[2024-08-15 18:58] VITALS: BP 134/77; PULSE 85; RESP 20; TEMP 98
== END 2024-08-15 19:06 | disposition home or self-care (01) ==
LOC: JER 14:07
DX: R07.89 Other chest pain (principal); Z20.822 Contact with and (suspected) exposure to COVID-19
CPT/HCPCS: 0241U-QW; 36415; 71046-TC-FY; 80053; 83735; 84484; 85610; 85730; 93005; 93010; 99285-25

== ENCOUNTER 2024-09-06 12:40 | Emergency (ER) | payer OTHER ==
[2024-09-06 12:47] VITALS: BMI 25.9
[2024-09-06] MEDS ORDERED: DICYCLOMINE HCL 10 MG CAPSULE ONE (13:49)
[2024-09-06] MEDS ORDERED: ACETAMINOPHEN INJECTION 100 ML ONE (13:49)
[2024-09-06] MEDS ORDERED: PANTOPRAZOLE SODIUM 40 MG VIAL ONE (13:50)
[2024-09-06] MEDS: PANTOPRAZOLE SODIUM 40 MG VIAL IVPUSH ONE (13:59)
[2024-09-06] MEDS: DICYCLOMINE HCL 10 MG CAPSULE PO ONE (13:59)
[2024-09-06] MEDS: SODIUM CHLORIDE 0.9% 500 ML INFUS.BAG IV ONE (13:59)
[2024-09-06] MEDS: ACETAMINOPHEN 1000 MG/100 ML BAG IVPB ONE (13:59)
[2024-09-06 14:08] LABS: BASO % 0.4 % (0-2.0); EOS % 0.6 % (0-4.5); HEMATOCRIT 43.2 % (32.4-45.2); HEMOGLOBIN 13.9 GM/dL (10.7-15.3); LYMPH % 33.9 % (8-40); MCH 27.6 pg (25.7-33.7); MCHC 32.1 g/dl (32.0-36.0); MEAN CELL VOLUME 85.9 fl (80-96); MEAN PLT VOLUME 10.3 fl (7.5-11.1); MONO % 4.4 % (3.8-10.2); NEUT % 60.7 % (42.8-82.8); PLATELET COUNT 208 10^3/uL (134-434); RBC 5.03 M/mm3 (3.60-5.2); RDW 14.5 % (11.6-15.6); WHITE BLOOD COUNT 4.5 K/mm3 (4.0-10.0)
[2024-09-06 14:10] LABS: EPI CELLS 4 /uL (0-25.1); HYALINE CASTS 0 /uL (0-3.1); PH,URINE 6.5 (5.0-8.0); URINE APPEARANCE CLEAR; URINE BACTERIA 6 /uL (0-1359); URINE BILIRUBIN NEGATIVE (NEGATIVE); URINE COLOR YELLOW; URINE GLUCOSE (UA) NEGATIVE (NEGATIVE); URINE KETONE NEGATIVE (NEGATIVE); URINE LEUK ESTERASE NEGATIVE (NEGATIVE); URINE NITRITE NEGATIVE (NEGATIVE); URINE PROTEIN NEGATIVE (NEGATIVE); URINE RBC 13 /uL (0-23.9); URINE UROBILINOGEN 0.2 mg/dL (0.2-1.0); URINE WBC 36 /uL (0-25.8)
[2024-09-06 14:25] LABS: POTASSIUM 3.7 mmol/L (3.5-5.1)
[2024-09-06 14:27] LABS: CALCIUM 9.5 mg/dL (8.5-10.1)
[2024-09-06 14:28] LABS: ALBUMIN 4.4 g/dl (3.4-5.0); BLOOD UREA NITROGEN 8.2 mg/dL (7-18)
[2024-09-06 14:32] LABS: BILIRUBIN,TOTAL 0.9 mg/dL (0.2-1); TOT PROT 8.2 g/dl (6.4-8.2)
[2024-09-06 14:51] VITALS: BP 145/92; PULSE 87; RESP 19; TEMP 98
== END 2024-09-06 15:02 | disposition home or self-care (01) ==
LOC: JER 12:40
PROC: 3E033NZ Introduction of Analgesics, Hypnotics, Sedatives into Peripheral Vein, Percutaneous Approach (ICD-10-PCS; principal; 2024-09-06)
PROC: 3E033GC Introduction of Other Therapeutic Substance into Peripheral Vein, Percutaneous Approach (ICD-10-PCS; 2024-09-06)
DX: R10.84 Generalized abdominal pain (principal); G89.29 Other chronic pain; R50.9 Fever, unspecified; R11.10 Vomiting, unspecified; R19.7 Diarrhea, unspecified
CPT/HCPCS: 0241U-QW; 36415; 80053; 81003; 83605; 83690; 84703; 85025; 87086; 96374; 96375; 99284-25; J0131

== ENCOUNTER 2024-11-12 13:01 | Emergency (ER) | payer OTHER ==
[2024-11-12 13:16] VITALS: TEMP 98.6; BMI 26.6
[2024-11-12] MEDS ORDERED: METOCLOPRAMIDE HCL INJECTION 10 MG/2 ML VIAL ONE (15:13)
[2024-11-12] MEDS ORDERED: FAMOTIDINE 20 MG/50 ML IVPB 20 MG/50 ML MG IVPB ONE (15:13)
[2024-11-12] MEDS ORDERED: ACETAMINOPHEN INJECTION 100 ML ONE (15:13)
[2024-11-12 15:17] LABS: ABSOLUTE IMMATURE GRANULOCYTES 0.01 x10^3/uL (0.0-0.031); BASOPHILS # 0.01 x10^3/uL (0.01-0.08); EOSINOPHIL % 0.2 % (0.7-5.8); EOSINOPHILS # 0.01 x10^3/uL (0.04-0.36); HEMATOCRIT 43.4 % (34.1-44.9); HEMOGLOBIN 14.5 g/dL (11.2-15.7); MCHC 33.4 g/dl (32.2-35.5); MEAN CELL VOLUME 83.9 fl (79.4-94.8); MEAN PLT VOLUME 12.8 fl (9.4-12.3); MONOCYTE # 0.27 x10^3/uL (0.24-0.86); MONOCYTE % 6.1 % (4.7-12.5); PLATELET COUNT 206 x10^3/uL (182-369); RDW 13.6 % (12.2-17.1)
[2024-11-12 15:19] LABS: PH,URINE 6.5 (5.0-8.0); URINE APPEARANCE CLEAR; URINE BILIRUBIN NEGATIVE (NEGATIVE); URINE COLOR YELLOW; URINE GLUCOSE (UA) NEGATIVE (NEGATIVE); URINE KETONE NEGATIVE (NEGATIVE); URINE LEUK ESTERASE NEGATIVE (NEGATIVE); URINE NITRITE NEGATIVE (NEGATIVE); URINE PROTEIN NEGATIVE (NEGATIVE); URINE UROBILINOGEN 0.2 mg/dL (0.2-1.0)
[2024-11-12] MEDS: METOCLOPRAMIDE HCL INJECTION 10 MG/2 ML VIAL IVPB ONE (15:27)
[2024-11-12] MEDS: SODIUM CHLORIDE 0.9% 500 ML INFUS.BAG IV ONE (15:27)
[2024-11-12] MEDS: ACETAMINOPHEN 1000 MG/100 ML BAG IVPB ONE (15:27)
[2024-11-12] MEDS: FAMOTIDINE 20 MG/50 ML IVPB 20 MG/50 ML MG IVPB ONE (15:27)
[2024-11-12 15:28] LABS: HCG,QUALITATIVE URINE Negative
[2024-11-12 15:48] LABS: POTASSIUM 4.3 mmol/L (3.5-5.1)
[2024-11-12 15:50] LABS: ALBUMIN 4.4 g/dl (3.4-5.0); BLOOD UREA NITROGEN 12.3 mg/dL (7-18); CALCIUM 9.9 mg/dL (8.5-10.1); MAGNESIUM 2.2 mg/dL (1.8-2.4)
[2024-11-12 15:53] LABS: CREATININE 1.1 mg/dL (0.55-1.3)
[2024-11-12 15:55] LABS: BILIRUBIN,TOTAL 0.7 mg/dL (0.2-1); TOT PROT 8.6 g/dl (6.4-8.2)
[2024-11-12 16:09] VITALS: RESP 18
[2024-11-12 18:36] VITALS: BP 145/88; PULSE 91
== END 2024-11-12 18:47 | disposition home or self-care (01) ==
LOC: JER 13:01
PROC: 3E033GC Introduction of Other Therapeutic Substance into Peripheral Vein, Percutaneous Approach (ICD-10-PCS; principal; 2024-11-12)
PROC: 3E033NZ Introduction of Analgesics, Hypnotics, Sedatives into Peripheral Vein, Percutaneous Approach (ICD-10-PCS; 2024-11-12)
PROC: 3E033GC Introduction of Other Therapeutic Substance into Peripheral Vein, Percutaneous Approach (ICD-10-PCS; 2024-11-12)
DX: K21.9 Gastro-esophageal reflux disease without esophagitis (principal); R51.9 Headache, unspecified; R42 Dizziness and giddiness; R07.9 Chest pain, unspecified; H53.8 Other visual disturbances; R10.11 Right upper quadrant pain; R10.13 Epigastric pain; R00.2 Palpitations; R20.2 Paresthesia of skin; R55 Syncope and collapse; M25.59 Pain in other specified joint; R68.84 Jaw pain
CPT/HCPCS: 36415; 70450-TC; 71046-TC-FY; 80053; 81003; 83690; 83735; 84443; 84484; 84703; 85025; 85379; 86850; 86900; 86901; 87086; 93005; 93010; 99285-25; J0131

== ENCOUNTER 2024-12-24 13:30 | Emergency (ER) | payer OTHER ==
[2024-12-24 13:36] VITALS: TEMP 98.3; BMI 26.6
[2024-12-24 15:07] VITALS: RESP 16
[2024-12-24 15:12] LABS: ABSOLUTE IMMATURE GRANULOCYTES 0.01 x10^3/uL (0.0-0.031); BASOPHILS # 0.02 x10^3/uL (0.01-0.08); EOSINOPHIL % 0.6 % (0.7-5.8); EOSINOPHILS # 0.03 x10^3/uL (0.04-0.36); HEMATOCRIT 43.3 % (34.1-44.9); HEMOGLOBIN 13.8 g/dL (11.2-15.7); MCHC 31.9 g/dl (32.2-35.5); MEAN CELL VOLUME 86.6 fl (79.4-94.8); MEAN PLT VOLUME 12.3 fl (9.4-12.3); MONOCYTE # 0.23 x10^3/uL (0.24-0.86); MONOCYTE % 4.7 % (4.7-12.5); PLATELET COUNT 231 x10^3/uL (182-369); RDW 13.9 % (12.2-17.1)
[2024-12-24 15:19] LABS: POTASSIUM 5.2 mmol/L (3.5-5.1)
[2024-12-24 15:21] LABS: CALCIUM 9.7 mg/dL (8.5-10.1)
[2024-12-24 15:22] LABS: ALBUMIN 4.1 g/dl (3.4-5.0); BLOOD UREA NITROGEN 10.6 mg/dL (7-18)
[2024-12-24 15:24] VITALS: BP 156/90; PULSE 79
[2024-12-24 15:27] LABS: BILIRUBIN,TOTAL 0.7 mg/dL (0.2-1); TOT PROT 8.1 g/dl (6.4-8.2)
[2024-12-26 20:06] LABS: HCV DIAGNOSTIC IN-HOUSE W/RFLX NON-REACTIVE (NONREACTIVE)
[2024-12-26 20:22] LABS: HIV INTERPRETATION NEGATIVE (NEGATIVE)
== END 2024-12-24 19:27 | disposition home or self-care (01) ==
LOC: JER 13:30
DX: R07.89 Other chest pain (principal); G89.29 Other chronic pain; R53.83 Other fatigue; M79.604 Pain in right leg; M79.605 Pain in left leg; R42 Dizziness and giddiness; R06.02 Shortness of breath; M79.10 Myalgia, unspecified site; M54.2 Cervicalgia; R21 Rash and other nonspecific skin eruption; M54.9 Dorsalgia, unspecified
CPT/HCPCS: 36415; 71046-TC-FY; 71275-TC; 80053; 84484; 84703; 85025; 86803; 87389; 93005; 93010; 99285-25; Q9967